=== PATIENT | female | born 1945 | race Caucasian/White ===

== ENCOUNTER 2018-12-20 09:08 | Day surgery (SDC) | payer OTHER ==
[~2018-12-20] VITALS: Ht 139.7 cm; Wt 49.0 kg
[~2018-12-20 09:08] MED LIST: AMLODIPINE; HYDROCHLOROTHIAZIDE; PRAVASTATIN
[2018-12-20 10:10] VITALS: BP 179/86; PULSE 82; RESP 18
[2018-12-20] MEDS ORDERED: MIDAZOLAM 1 MG/ML 2 ML INJ ONE (11:23)
[2018-12-20] MEDS ORDERED: FENTAnyl 50 MCG/ML VIAL ONE (11:23)
[2018-12-20 11:41] VITALS: BP 124/63; RESP 18
== END 2018-12-20 12:09 | disposition home or self-care (01) ==
LOC: GIL 09:08
PROVIDERS: ATTEND Internal Medicine Gastroenterology
DX: Z12.11 Encounter for screening for malignant neoplasm of colon (principal); K64.8 Other hemorrhoids; I10 Essential (primary) hypertension; E78.5 Hyperlipidemia, unspecified
CPT/HCPCS: 45378; J2250; J3010; Z7610